=== PATIENT | female | born 1965 | race Caucasian/White ===

== ENCOUNTER 2019-06-24 09:52 | Emergency (ER) | payer MEDICARE, MEDICAID ==
--- OUTSIDE RECORDS SUMMARY | 2019-06-24 10:02 | XMS REPORT | Continuity of Care Document ---
:1965 External Reference #:[id number] Author Name Devi Giles PA (transmitted by agent of provider Lm Lozano) Address [address], [address] [place] [address] Care Team Providers Name Role Phone Tiffany Best MD - Internal Medicine Care Team Information Registration Specialist [phone] Problems Active Problems Provider Date Tachycardia Melissa Morocho ANP Onset: 05/14/2013 Dyspnea Melissa Morocho, ANP Onset: 05/14/2013 Benign essential hypertension Melissa Morocho, ANP Onset: 05/14/2013 Migraine without aura, not refractory Melissa Morocho ANP Onset: 11/25/2013 Social History Type Date Description Comments Sex Unknown Tobacco Use Start: Unknown End: Quit Unknown Cigarette Use Pack Years - 30 Smoking Status Reviewed: 05/09/19 Quit ETOH Use Denies alcohol use Tobacco Use Start: Unknown End: Patient is a former smoker Unknown Recreational Drug Use Denies Drug Use Exercise Type/Frequency Does not exercise Allergies, Adverse Reactions, Alerts Active Allergies Reaction Severity Comments Date NKDA 03/23/2018 Bee Sting 08/03/2017 Medications Active Medications SIG Qnty Indications Ordering Date Provider Ranexa 1 by mouth twice 180tabs I47.1 Navin Hunt MD 09/26/2018 1000mg Tablets ER a day 12HR Atenolol Take One Tablet 90tabs I47.1 Marta 02/14/2018 50mg Tablets By Mouth Every Lm Jv Sevilla., Day FACC Oxygen Oxygen Walker Farrar, 04/07/2017 concentrator. To MD use oxygen at 2 L/min at night. Diagnosis: Hypoxia Ipratropium use every 6 hours 270ml Walker Farrar, 12/24/2015 [place]/Albuterol as needed for MD Sulfate shortness of 0.5-2.5(3)mg/3ML breath. Solution Advair Diskus 1 puff bid Unknown 500-50mcg/Dose Aerosol Imitrex po qd prn Unknown 100mg Tablets Benadryl take 2 po q 4 hrs Unknown 25mg Tablets prn Cymbalta 1 by mouth every Unknown 60mg Caps DR day Part Spiriva Respimat take 2 puffs once Unknown daily. 2.5mcg/Act Aerosol Ventolin HFA 1-2 puffs every Unknown 108(90Base) 4-6 hours as mcg/Act Aerosol needed Singulair 1 by mouth every Unknown 10mg Tablets day Montelukast Sodium Tiffany Best MD 10mg Tablets Hydroxyzine HCL Tiffany Best MD 25mg Tablets Omeprazole 1 by mouth every Unknown 20mg Capsules day Spironolactone 1 tab daily Unknown 50mg Tablets Immunizations Description No Information Available Vital Signs Date Vital Result Comment 05/09/2019 1:41pm BP Systolic Sitting Left Arm 120 mmHg BP Diastolic Sitting Left Arm 72 mmHg Heart Rate 73 /min Respiratory Rate 18 /min Height 63 inches 5'3" Weight 232.00 lb BMI (Body Mass Index) 41.1 kg/m2 BSA (Body Surface Area) 2.06 m2 [place] body weight in kilograms 52 kg O2 Saturation Level with Exercise 94 % 08/26/2018 1:42pm BP Systolic Sitting Left Arm 114 mmHg BP Diastolic Sitting Left Arm 72 mmHg Heart Rate 66 /min Respiratory Rate 18 /min Height 63 inches 5'3" Weight 256.00 lb BMI (Body Mass Index) 45.3 kg/m2 BSA (Body Surface Area) 2.15 m2 [place] body weight in kilograms 52 kg O2 % BldC Oximetry 93 % Ora Results Description No Information Available Procedures Date Code Description Status 01/02/2019 25071 Eye Exam New Patient Comprehensive Completed Medical Devices Description No Information Available Encounters Type Date Location Provider Dx Diagnosis Office Visit 05/09/2019 Cardiology Office ChanDevi I35.0 Nonrheumatic aortic 1:40p B., PA (valve) stenosis I47.1 Supraventricular tachycardia I10 Essential (primary) hypertension G47.33 Obstructive sleep apnea (adult) (pediatric) I50.32 Chronic diastolic (congestive) heart failure Assessments Date Code Description Provider 05/09/2019 I35.0 Nonrheumatic aortic (valve) stenosis Sulema Gileslyss B., PA 05/09/2019 I47.1 Supraventricular tachycardia Chan, Marlyss B., PA 05/09/2019 I10 Essential (primary) hypertension ChanSulema petelyss B., PA 05/09/2019 G47.33 Obstructive sleep apnea (adult) (pediatric) Chan, Marlyss B., PA 05/09/2019 I50.32 Chronic diastolic (congestive) heart ChanSulema petelyss B., PA failure 02/28/2019 I35.0 Nonrheumatic aortic (valve) stenosis Sulema Gileslyss B., PA 02/28/2019 I47.1 Supraventricular tachycardia Chan Marlyss B., PA 02/28/2019 I10 Essential (primary) hypertension Sulema Gileslyss B., PA 02/28/2019 G47.33 Obstructive sleep apnea (adult) (pediatric) Chan Marlyss B., PA 01/02/2019 M32.9 Systemic lupus erythematosus, unspecified Sushant Villa MD 01/02/2019 H25.813 Combined forms of age-related cataract, Sushant Villa MD bilateral Plan of Treatment Future Appointment(s):11/09/2019 1:20 pm - Navin Hunt MD at Cardiology U[facility]fw[facility]2605/09/2019 - Riddhi Giless Narendra., PAI35.0 Nonrheumatic aortic (valve) stenosisComments:Monitor.I47.1 Supraventricular tachycardiaComments:No changes.I10 Essential (primary) hypertensionComments:BP goal is <130/80 mmHg. She had recent blood work with PCP.G47.33 Obstructive sleep apnea (adult) (pediatric)I50.32 Chronic diastolic (congestive) heart failureComments:Monitor. Sodium restriction reinforced. She will call if edema returns.AllFollow up: 6 month Functional Status Functional Condition Comment Date Status Independent with all ADL's Active Glasses Active Mental Status Description No Information Available Referrals Description No Information Available
[2019-06-24 10:13] VITALS: BP 132/76
--- NOTE | 2019-06-24 10:25 | UC ---
Dental HPI - HPI Summary HPI Summary: R upper tooth pain and facial pain for approx. - History of Current Complaint Chief Complaint: UCDentalProblem Stated Complaint: DENTAL PAIN Time Seen by Provider: 06/24/19 10:20 Hx Obtained From: Patient Pain Intensity: 9 Pain Scale Used: 0-10 Numeric Aggravating Factor(s): Nothing Alleviating Factor(s): Nothing - Allergies/Home Medications Allergies/Adverse Reactions: Allergies Allergy/AdvReac Type Severity Reaction Status Date / Time MS Tetracycline Allergy Diarrhea Verified 06/24/19 10:15 [Tetracycline] Home Medications: Home Medications Albuterol 2.5MG/3ML (0.083%)* [Ventolin 2.5 MG/3 ML NEB.DENYS*] 2 puff INH SEE INSTRUCTIONS PRN 06/09/15 [History Confirmed 06/24/19] Atenolol TAB* [Tenormin TAB*] 50 mg PO DAILY 06/09/15 [History Confirmed ] Fluticasone-Salmeterol 500-50* [Advair Diskus 500-50*] 1 puff INH BID 06/09/15 [ History Confirmed 06/24/19] Omeprazole CAP (NF) [PriLOSEC CAP*] 40 mg PO DAILY 06/09/15 [History Confirmed 06/24/19] SUMAtriptan TAB* [Imitrex TAB*] 100 mg PO SEE INSTRUCTIONS PRN 06/09/15 [ History Confirmed 06/24/19] Tiotropium CAPSULE (NF) [Spiriva CAP.INH*] 1 cap.inh INH DAILY 06/09/15 [ History Confirmed 06/24/19] diPHENhydraMINE PO* [Benadryl PO*] 50 mg PO TID PRN 06/09/15 [History Confirmed 06/24/19] Acetaminophen [Tylenol Extra Strength] 1,000 mg PO QID 06/24/19 [History Confirmed 06/24/19] Amoxicillin/Clavulanate TAB* [Augmentin TAB 875*] 875 mg PO BID 10 Days #20 tab 06/24/19 [Rx] DULoxetine DR CAP* [Cymbalta CAP*] 1 mg PO DAILY 06/24/19 [History Confirmed ] Empagliflozin/Metformin HCl [Synjardy 5-1000 mg] 1 tab PO DAILY 06/24/19 [ History Confirmed 06/24/19] Ibuprofen 400 mg PO TID 06/24/19 [History Confirmed 06/24/19] Ranolazine [Ranolazine ER] 1,000 mg PO BID 06/24/19 [History Confirmed 06/24/19] Spironolactone 50 mg PO DAILY 06/24/19 [History Confirmed 06/24/19] PMH/Surg Hx/FS Hx/Imm Hx Previously Healthy: Yes Cardiovascular History: Cardiac Disease, Hypertension Respiratory History: COPD GI/ History: Gastroesophageal Reflux - Surgical History Surgical History: Yes Surgery Procedure, Year, and Place: C SECTION 1988. LUNG LAVAGE WITH BIOPSIES. a-fib with cardiac ablasion 2018 - Family History Known Family History: Positive: Unknown - Social History Alcohol Use: None Substance Use Type: None Smoking Status (MU): Former Smoker Type: Cigarettes When Did the Patient Quit Smoking/Using Tobacco: FEB 2015 Review of Systems All Other Systems Reviewed And Are Negative: Yes Constitutional: Negative: Fever Skin: Negative: Rash ENT: Positive: Dental Pain, Sinus Pain/Tenderness - R side. Negative: Sore Throat, Sinus Congestion Respiratory: Negative: Shortness Of Breath, Cough Gastrointestinal: Negative: Vomiting, Diarrhea Physical Exam Triage Information Reviewed: Yes Appearance: Well-Appearing Vital Signs: Initial Vital Signs Temp 96.7 F 06/24/19 10:03 Pulse 67 06/24/19 10:03 Resp 20 06/24/19 10:03 BP 132/76 06/24/19 10:03 Pulse Ox 100 06/24/19 10:03 Vital Signs Reviewed: Yes Eyes: Positive: Conjunctiva Clear ENT: Positive: Pharynx normal, TMs normal, Sinus tenderness - R, Other - R upper gums swollen and tender w/ R facial tenderness Dental Complaint Course/Dx - Course Course Of Treatment: Suspected abscess in gums at upper R side. She has upcoming appt w/ dental as soon as her insurance goes through. AFebrile. Will tx w/ antibx. ok to use nsaids for pain. - Differential Dx/Diagnosis Differential Diagnosis/Dx: Dental Abscess, Fractured Tooth, Other Provider Diagnosis: Dental abscess Discharge ED - Sign-Out/Discharge Documenting (check all that apply): Patient Departure All imaging exams completed and their final reports reviewed: No Studies - Discharge Plan Condition: Good Disposition: HOME Prescriptions: Amoxicillin/Clavulanate TAB* [Augmentin TAB 875*] 875 mg PO BID 10 Days #20 tab Patient Education Materials: Dental Abscess (ED) Referrals: Tiffayn Best MD [Primary Care Provider] - Additional Instructions: Please schedule your dental appt within two weeks. - Billing Disposition and Condition Condition: GOOD Disposition: Home
== END 2019-06-24 10:44 | disposition home or self-care (01) ==
LOC: UCCORT 09:52
DX: K04.7 Periapical abscess without sinus (principal); Z88.1 Allergy status to other antibiotic agents; I10 Essential (primary) hypertension; K21.9 Gastro-esophageal reflux disease without esophagitis; J44.9 Chronic obstructive pulmonary disease, unspecified; Z87.891 Personal history of nicotine dependence
CPT/HCPCS: 99212; G0463